=== PATIENT | female | born 1960 | race Caucasian/White ===

== ENCOUNTER 2017-05-11 19:29 | Emergency (ER) | END 2017-05-12 05:44 | disposition home or self-care (01) | DX: F10.129 Alcohol abuse with intoxication, unspecified (principal); R40.2252 Coma scale, best verbal response, oriented, at arrival to emergency department; R40.2142 Coma scale, eyes open, spontaneous, at arrival to emergency department; R40.2362 Coma scale, best motor response, obeys commands, at arrival to emergency department | CPT/HCPCS: 36415; 80053; 80306; 85025; 96372; 99284; J1200; J1630; J7030 ==

== ENCOUNTER 2017-12-14 21:49 | Emergency (ER) | END 2017-12-15 06:59 | disposition home or self-care (01) ==